=== PATIENT | female | born 1995 | race Caucasian/White ===

== ENCOUNTER → 2023-09-19 15:04 | Outpatient (CLI) | payer OTHER, SELFPAY ==
--- NOTE | 2023-09-19 15:05 | DI.US.S_ITS ---
PROCEDURE: US OB >= 14 WEEKS FETUS INDICATIONS: ANATOMY OUTSIDE/PRIOR DATING DATA: Last menstrual period (LMP): 04/30/2023. LMP-based estimated date of delivery (AYAH): 02/04/2024. First dating scan (date and location): Unknown. Estimated date of delivery (AYAH) from first dating scan: Unknown. The calculations are made using the working provided AYAH of 02/07/2024. TECHNIQUE: Real-time scanning was performed of the fetus, with image documentation and biometric measurements. Endovaginal scanning: Not performed COMPARISON: None. FINDINGS: General: A single living intrauterine gestation is present. Presentation: Variable. Placenta: Placental position is posterior , without previa. Amniotic fluid index: 12.3 cm, normal range is 5-24 cm. Single deepest vertical pocket is 4.5 cm. heart rate: 136 beats per minute. Maternal cervical canal: 2.9 cm long. Normal lower limit is 2.5 cm. biometrics: Biparietal diameter: 4.4 cm, 19 weeks 2 days Head circumference: 16.5 cm, 19 weeks 1 day Abdominal circumference: 15.5 cm, 20 weeks 5 days Femur length: 3.3 cm, 20 weeks 1 day Clinically estimated gestational age: 20 weeks 2 days Composite gestational age from present scan: 19 weeks 6 days Estimated weight and percentile: 345 g, 46 percentile Anatomic survey: Neuro: Ventricles are non-dilated at less than 10 mm. Cisterna magna is normal at 3-11 mm. Cerebellum is normal in size and morphology. Nuchal skin fold: Normal at less than 6 mm between 14-21 weeks gestational age. Face: Nose and lips, facial profile are normal. Spine: No evidence for spina bifida. Heart: 4-chambered heart is present, with normal ventricular outflow tracts. Diaphragm: Diaphragm is intact. Stomach: Left-sided stomach is present. Kidneys: No hydronephrosis. Normal is less than 5 mm in 2nd trimester, less than 7 mm in 3rd trimester. Cord: 3-vessel cord has orthotopic insertion. Bladder: Normal in size. Extremities: All 4 extremities identified. IMPRESSION: 1. Living 2nd trimester intrauterine with no sonographic evidence of complications. Current ultrasound age correlates with clinical age. 2. Normal 2nd trimester anatomy study. We strive to produce accurate, complete, and clear reports of imaging services. To assist us in improving patient care, this report was composed using standard report templates and voice recognition software. Therefore, it may contain abnormal punctuation, insertions and/or omissions. Occasional wrong-word or sound-alike substitutions may occur. Though we review the report and make efforts to correct it, we do recommend that the report be read carefully in proper context to recognize any text inaccuracies. Dictated by: Diaz Ma M.D. on 09/19/2023 at 17:08 Approved by: Diaz Ma M.D. on 09/19/2023 at 17:11
== END ==
PROVIDERS: Family Provider Family Medicine; Referring Provider Advanced Practice Midwife; Visit Provider Advanced Practice Midwife
DX: Z34.02 Encounter for supervision of normal first pregnancy, second trimester (principal); Z3A.19 19 weeks gestation of pregnancy
CPT/HCPCS: 76811

== ENCOUNTER 2024-02-01 10:40 | Inpatient (IN) | payer OTHER, SELFPAY ==
--- NOTE | 2024-02-01 12:50 | P.HPOB_ITS ---
OB HPI Date/Time Date of admission: 02/01/24 Date Patient Seen: 02/01/24 Time Patient Seen: 12:50 History of Present Condition Chief complaint: LABOR : 2 Para: 0 Estimated Date of Delivery: 02/04/24 Estimated Gestational Age (weeks): 39.4 Narrative: Falguni Mae is a 28 year old female @ 39wks 4 days here for evaluation of suspected PROM. Noticed leaking fluid between 0830 and 0930 this morning. Fluid has a slight yellow color to it. Feeling normal FM. Rare, mild cramping. No vaginal bleeding. Uncomplicated care with CNMs. Desires low intervention . Planning an epidural. Partner Francesco is present and supportive. History of Present care: good care, initiated at week # (7), number of visits (11) and pounds weight gain (48) Dating criteria: LMP confirmed by 1st trimester US (10wk) Ultrasounds: normal mid trimester US Obstetrical complications: none Medical complications: none Preadmission Labs Blood type: B (+) positive -: Antibody screen: negative, GBS status: negative, HBsAG: negative, HIV: negative and RPR/VDLR: negative -: Chlamydia screen: not detected and Gonorrhea screen: not detected -: Rubella: immune and Varicella: immune HCT: 36.9 HCAB: negative PAP: Abnormal (Colpo negative) 1 hr GTT: 82 Prior (ies) History: MAB x1 Evaluation Evaluation Baseline heart rate: 140 Variability: Moderate (11-25) monitor accelerations: Present Monitor Decelerations: Absent Contraction Frequency (minutes): 3 Uterine Contraction Intensity: Mild Status: Category l Non-invasive Membranes Rupture Test: positive Comments: CE deferred [facility] Medical History Acne (~2009) Painful menstrual periods (~2012) Family History Father Hypertension Grandfather Prostate cancer Colon cancer Hypertension Hyperlipidemia Grandmother Cancer Grandfather Cancer Hyperlipidemia Hypertension Grandmother Cancer Diabetes mellitus Hyperlipidemia Hypertension Social History Smoking Status: Never smoker Meds Home Medications and Allergies Home Medications Medication Instructions Recorded Confirmed Type vitamins no.119-iron See Rx Instructions .Route .COMPLEX 08/03/23 02/01/24 History fumarate 29 mg-folic acid 1 mg tablet Allergies Allergy/AdvReac Type Severity Reaction Status Date / Time No Known Drug Allergies Allergy Verified 02/01/24 12:33 Review of Systems Review of Systems ROS: Yes All systems reviewed with the patient and are negative except as otherwise documented OB Exam Vital signs Blood Pressure: 124/84 Pulse Rate: 98 Temperature: 98.1 F Resp Effort & Inspection: normal respiratory effort and able to speak in complete sentences Auscultation: clear to auscultation bilaterally Cardio Rate: regular rate Rhythm: regular rhythm Presentation: vertex Amniotic Fluid: meconium (light) Objective Labs 02/01/24 15:09 Assessment and Plan Assessment and Plan Assessment and Plan narrative: A: Term nullipara PROM x 4 hours without sx of infection No indication for antibiotics Suspected meconium stained amniotic fluid Cat I FHR P: Admit, routine labor orders. Expectant management of PROM. May switch to intermittent auscultation. As contractions have begin and she is feeling a little more uncomfortable, we discussed options for early labor and she elected movement and a TENS unit which was applied. Labor support PRN. Epidural when requested. CE after 2 hours of strong contractions. Reassess in 6 hours or sooner, PRN. Time-Based Coding :: [TOTAL MINUTES] spent with patient and on the chart (including review of chart, obtaining history, exam, reviewing outside data, placing orders, documenting exam and treatment plan, and counseling patient) on [DATE].
[2024-02-01 13:34] VITALS: BP 120/80
[2024-02-01 14:51] VITALS: BP 124/84; PULSE 98; TEMP 36.7
[2024-02-01 15:35] LABS: Add Manual Diff / Slide Review NO; Basophils Absolute Auto 0 /uL (0-100); Basophils Percent Auto 0.3 % (0-2); Eosinophils Absolute Auto 0 /uL (0-450); Eosinophils Percent Auto 0.3 % (2-4); Hematocrit 39.8 % (36-46); Lymphocytes Absolute Auto 1600 /uL (1100-4500); Lymphocytes Percent Auto 16.4 % (25-40); Mean Corpuscular HGB Conc 35.1 % (30-36); Mean Corpuscular Hemoglobin 33.4 PG (26-34); Mean Corpuscular Volume 95.3 fL (80-100); Monocytes Absolute Auto 700 /uL (0-900); Monocytes Percent Auto 7.4 % (3-14); Neutrophils Absolute Auto 7300 /uL (1500-7000); Neutrophils Percent Auto 75.6 % (50-75); Platelet Count 155 X10^3/uL (150-400); Red Blood Cell Count 4.18 X10^6/uL (4.0-5.2); Red Cell Distribution Width 13.3 % (11.6-14.8); White Blood Cell Count 9.7 X10^3/uL (4.5-11.0)
--- NOTE | 2024-02-01 20:29 | PM.OBPNLAB ---
Date/Time Date Patient Seen: 02/01/24 Time Patient Seen: 19:30 Pain Control Pain control: tolerating well Comments: Falguni is doing well, feeling irregular contractions but they are becoming more intense. Declines pitocin augmentation at this time. Does want some medication for sleep and may also try medication for pain. Pelvic Exam Amniotic membrane status: Ruptured (clear fluid) Comments: SVE deferred VS: BP 115/76 HR 82 bpm Temp: 36.8 C SPO2 97% Contractions Contractions on admission: irregular Contraction pattern: Irregular (mild) Contraction intensity: Mild Status Comments: Intermittent auscultation Baseline: 130 bpm Increases noted Decreases absent Assessment and Plan Comments: at 39w4d by LMP and confirmed by early ultrasound GBS negative Rh positive PROM x 11 hours Early labor FHR reassuring by doppler Continue expectant management. Review r/b/a at this time re: prolonged PROM. Recommend starting pitocin at 2030 (12 hours after PROM). Patient declines at this time. Reassess/consider pitocin at 0230 (18 hours post ROM). Offer sleep and/or pain medication at this time; Benadryl and morphine IM ordered.
[2024-02-01] MEDS: diphenhydrAMINE 50 MG/ML VIAL IV (21:53)
[2024-02-01] MEDS: MORPHINE 10 MG/ML INJ IM (22:34)
[2024-02-02] MEDS: LACTATED RINGERS 1,000 ML 100 ML IV ×2 (01:35→06:49)
--- NOTE | 2024-02-02 01:56 | PM.OBPNLAB ---
Date/Time Date Patient Seen: 02/02/24 Time Patient Seen: 01:10 Pain Control Pain control: tolerating well Comments: Falguni's contractions kicked in approx 2200, at first every 3 min, and now about every 1.5 min. Requests cervical exam, and then epidural due to being only 3 cm. Pelvic Exam Dilation (cm): 3 Effacement (%): 80 station: 0 Amniotic membrane status: Ruptured (clear fluid) Comments: Before epidural (0121): 3/90/0/posterior/medium Exam after epidural (approx 0253): 4/90/0/mid position, softer Bloody show noted during epidural set up. Indwelling catheter placed by RN, urine returned BP @ 2334 119/77 Map 92 HR 86 O2 98% BP @ 0208 112/71 BP range 97- 114/50-69 Contractions Contractions on admission: irregular Monitor mode: External Contraction frequency (min): 3 Contraction duration (min): 1 Contraction pattern: Irregular (mild) Contraction intensity: Mild Status status: Category l Heart Rate Baseline: 130 Monitor Accelerations: Present Monitor Decelerations: Absent Monitor Variability: Moderate Assessment and Plan Assessment: other (Early labor) Plan: continuous present management Comments: Early labor GBS negative Rh positive PROM 18hrs Epidural placed by anesthesia with good relief Cat 1 Post epidural hypotension Position change with peanut ball q30 mins Monitor BP q15 mins until stable; epinephrine given per protocol, managed by anesthesisa Reassess in 4 hours or PRN
[2024-02-02] MEDS: ePHEDrine 50 MG/ML VIAL 10 MG IV ×2 (02:41→03:43)
--- NOTE | 2024-02-02 03:39 | PM.AN.REGBLK ---
Regional Block Pre-procedure Procedure: Continuous Lumbar Epidural for L&D (with dural puncture) Attending OB provider: Rebeca Diggs PMH/ROS narrative: 28yo with SROM the morning of 02/01/24 in labor requesting epidural. ASA Class: II Labs: Hct 39.8 % (36-46) 02/01/24 15:09 Plt Count 155 X10^3/uL (150-400) 02/01/24 15:09 Medications: Current Medications Generic Name Dose Route Start Last Admin Trade Name Freq PRN Reason Stop Dose Admin Calcium Carbonate 1,000 mg 02/01/24 12:47 Calcium Carbonate 500 Mg Tab PO Q2HR PRN Dyspepsia Carboprost Tromethamine 250 mcg 02/01/24 12:47 Carboprost 250 Mcg/Ml Ampul IM Q90M PRN Bleeding Diphenhydramine HCl 25 mg 02/02/24 03:37 Diphenhydramine 50 Mg/Ml Vial IV Q10M PRN Pruritis Ephedrine Sulfate 10 mg 02/02/24 03:37 Ephedrine 50 Mg/Ml Vial IV Q5M PRN Blood pressure decrease more than 20% of baseline. Oxytocin/Lactated Ringer's 30 unit in 500 mls @ 200 mls/hr 02/01/24 12:47 Oxytocin Premix IV CONT PRN Bleeding Protocol Tranexamic Acid 1,000 mg/ 100 mls @ 600 mls/hr 02/01/24 12:47 Sodium Chloride IV NOW PRN Bleeding FENT 2MCG/ML BUPIV 0.125% EPI 200 mcg in 100 mls @ 6 mls/hr 02/02/24 03:45 Fentanyl/Bupiv/Ns 2mcg/Ml - 0.125% EPIDURAL CONT ZAID Lidocaine HCl 20 ml 02/01/24 12:47 Lidocaine 1% 20 Ml INJ INTRA-OP PRN Post Delivery Methylergonovine Maleate 0.2 mg 02/01/24 12:47 Methylergonovine 0.2 Mg Tablet PO Q6HR PRN Heavy Bleeding Methylergonovine Maleate 0.2 mg 02/01/24 12:47 Methylergonovine 0.2 Mg/Ml Vial IM NOW PRN Bleeding Mineral Oil 30 ml 02/01/24 12:47 Mineral Oil 30 Ml Udc TOP PRN PRN Version Misoprostol 800 mcg 02/01/24 12:47 Misoprostol 200 Mcg Tablet MD NOW PRN Bleeding Misoprostol 400 mcg 02/01/24 12:47 Misoprostol 200 Mcg Tablet SL NOW PRN Bleeding Nalbuphine HCl 2.5 mg 02/02/24 03:37 Nalbuphine 20 Mg/Ml Ampul IV Q10M PRN Pruritis Naloxone HCl 0.2 mg 02/01/24 12:47 Naloxone 0.4 Mg/Ml Vial IV Q2MIN PRN Opiate Reversal Ondansetron HCl 4 mg 02/01/24 12:47 Ondansetron 4 Mg/2 Ml Inj IV Q4HR PRN Nausea And Vomiting Oxytocin 10 unit 02/01/24 12:47 Oxytocin 10 Unit/Ml Vial IM NOW PRN Bleeding Allergies: Allergies Allergy/AdvReac Type Severity Reaction Status Date / Time No Known Drug Allergies Allergy Verified 02/01/24 12:33 Procedure Insertion date: 02/02/24 Insertion time: 02:20 Prep/Local: 1% lidocaine (Chloraprep) Interspace: L3-4 Patient position: sitting Needle: 18 gauge [employer] (27g 5 Anatoly needle used for dural puncture) Loss of resistance with: saline HANK at (cm): 6 Catheter placed at SKIN (cm): 14 Catheter in SPACE (cm): 8 Insertion: Yes CSF, No Blood, No Paresthesia with insertion, No Paresthesia with injection and No Test dose reaction Initial Medications TEST DOSE time: 02:21 TEST DOSE: 1.5% lidocaine with epinephrine 1:200k (mL): 3 BOLUS DOSE time: 02:22 BOLUS DOSE (mL): 6 BOLUS DOSE med: other (2 ml same as test dose, 4 ml lido 1% PF) Infusion INFUSION: 0.125% bupivacaine and with fentanyl 2 mcg/mL Initial rate (mL/hr): 8 Subsequent interventions: Epidural pump started 02:37, at which time pt rated pain with contractions at 0/10. BP dropped from systolic in 120s to 90s. Treated with one dose of ephedrine 10 mg. Post-procedure Anesthesia date START: 02/02/24 Anesthesia time START: 02:07 Anesthesia date END: 02/02/24 Anesthesia time END: 14:54 Post-procedure Anesthesia Assessment: Yes CV function: HR/BP stable, Yes Resp function: RR/sat/airway adequate, Yes Post-op hydration adequate, Yes Pain control adequate, Yes Nausea & vomiting absent, Yes Temperature > 36 C, Yes Mental status appropriate and No Anesthesia complications
[2024-02-02] MEDS: FENT 2MCG/ML BUPIV 0.125% EPI 200 MCG/100 ML PLAST..BAG 6 MCG EPIDURAL (09:08)
[2024-02-02] MEDS: METHYLERGONOVINE 0.2 MG/ML VIAL IM (15:08)
--- NOTE | 2024-02-02 15:32 | PM.OBPNLAB ---
Date/Time Date Patient Seen: 02/02/24 Time Patient Seen: 12:00 Pain Control Pain control: epidural Comments: VS: BP 117/78, HR 88 bpm, SpO2 96%, T 36.8 C Pelvic Exam Dilation (cm): 9.5 Effacement (%): 100 station: +1 Amniotic membrane status: Ruptured (clear fluid) Comments: occiput transverse Contractions Monitor mode: External Contraction frequency (min): 2 (1-3) Contraction duration (min): 1 (1-1.5) Contraction pattern: Irregular (mild) Contraction intensity: Strong/Firm Status status: Category ll Heart Rate Baseline: 135 Monitor Accelerations: Present Monitor Decelerations: Variable Monitor Variability: Moderate Assessment and Plan Assessment: active labor Plan: continuous present management Comments: Active labor GBS negative Rh positive Cat II FHT Epidural with good pain control Expect NSVB soon Position change with peanut ballkm Reassess in 1 hours, PRN
--- NOTE | 2024-02-02 15:42 | PM.OBPNLAB ---
Date/Time Date Patient Seen: 02/02/24 Time Patient Seen: 06:15 Pain Control Pain control: epidural Comments: VS: BP: 111/63 HR: 104 Temp: 37.3C O2: 96 Pelvic Exam Dilation (cm): 7 Effacement (%): 95 station: 0 Amniotic membrane status: Ruptured (clear fluid) Comments: Left Occiput transverse Contractions Contractions on admission: irregular Monitor mode: External Contraction frequency (min): 3 (3-5) Contraction duration (min): 1 Contraction pattern: Irregular (moderate) Contraction intensity: Mild Status status: Category l Heart Rate Baseline: 135 Monitor Accelerations: Present Monitor Decelerations: Absent Monitor Variability: Moderate Assessment and Plan Assessment: active labor Plan: continuous present management Comments: Active labor GBS negative Rh positive Epidural with good relief Cat 1 FHT Continue present management Position change q30 mins with peanut ball
[2024-02-02] MEDS: KETOROLAC 30 MG/ML VIAL IV (16:20)
[2024-02-02] MEDS: WITCH HAZEL/GLYCERIN PADS 1 EACH TOP (16:20)
[2024-02-02] MEDS: DERMOPLAST SPRAY 20% 60 ML 1 SPRAY TOP (16:21)
[2024-02-02] MEDS: LANOLIN OINT 7 GM 1 APPLIC TOP (16:21)
--- NOTE | 2024-02-02 17:00 | P.PCNOB_ITS ---
Events: Premature Rupture Membrane Labor & Delivery Delivery date: 02/02/24 Cervical ripening method: none Induction method: none Delivery monitor: external FHT Route of delivery: Episiotomy description: None L&D Laceration Description: None Quantitative Blood Loss: 489 Anesthesia Type: Epidural Narrative: Falguni labored well with effective pain control with epidural. ROM <19 hours, normothermic maternal temperature. Her cervix was found to be complete, complete +2 but baby was still transverse. Nursing staff assisted Falguni to her R side to encourage OA position. After about 1.5 hours Falguni was feeling pressure and the urge to push. She pushed on her R side for several contractions then decided to turn to her back. She pushed for 42 mins total. Head delivered and restituted ROSLYN and the shoulders delivered easily right after; no nuchal cord. The vigorous baby girl was caught by SNM and FOB and placed on the maternal abdomen for drying and stimulation. Apgars 9/9. Chux pad was removed and weighed for QBL. Schultze delivery of apparently intact placenta. Pitocin was started per protocol for management of the 2nd stage. The cord was double clamped by SNM and cut by FOB; cord blood was collected and cord was noted to have 3 vessels. Fundus was not firm and active uterine bleeding was noted; fundus was massaged vigorously, pitocin was increased to max mL/hr and methergine given IM. Bleeding was controlled within 1 min. QBL 489 ml. Perinum was inspected and found to have very small 1st degree vaginal tear; no repair needed. Mother and baby were skin to skin when I left the room and was initiated in the first hour of life. [place] Baby 1: Infant gender: Female Presentation: vertex Position: Left Occiput Anterior Placenta delivery description: Spontaneous Cord Vessel Description: 3 Vessels score (1 min): 9 score (5 min): 9 weight: 3.467 kg Plan for aftercare: Routine care
[2024-02-02] MEDS: ACETAMINOPHEN 325 MG TABLET 650 MG PO (22:06)
[2024-02-03] MEDS: ACETAMINOPHEN 325 MG TABLET 650 MG PO (06:20)
[2024-02-03] MEDS: WITCH HAZEL/GLYCERIN PADS 1 EACH TOP (10:16)
--- NOTE | 2024-02-03 10:16 | P.DS_ITS ---
Discharge Providers Provider Date of admission: 02/01/24 10:40 Discharge Date: 02/03/24 Consults: 02/01/24 12:47 Consult to Anesthesiology Urgent Comment: Consulting Provider: Anesthesiologist Reason for consultation: Epidural Has provider been notified: No 02/03/24 15:29 Consult to Departmental Secretary Routine Comment: Discharge provider: Rebeca Diggs CNM, ARNP Summary Hospital Course Date Patient Seen: 02/03/24 Time Patient Seen: 10:16 Diagnoses: O80 Hospital Course: Falguni arrived to hospital with confirmed PROM. Expectant management progressed to active labor and resulted in with epidural. QBL <500 mL. Normal course. . Peripartum Data Infant Delivery Method: Natural Vaginal Laceration Description: None [place] 1: Gender: Female Status at Discharge Cognitive/behavioral status at discharge: oriented and calm Functional status at discharge: independent ambulation Overall status at discharge: patient is progressing back to baseline Time Spent with Patient Time attestation: Total time spent providing and/or coordinating discharge services: Time spent: Less than 30 minutes Specific discharge activities: discharge teaching Objective Labs 02/01/24 15:09 Exam Vital Signs (past 8 hours): BP 104/70 HR 86 bpm RR 16/min T 99.6 F Other: Fundus firm at U-2, midline. Lochia moderate Perineum intact with minimal edema Discharge Plan Discharge Plan Patient Disposition: Home Discharge orders & Medications Prescriptions: Continued PNV 119-iron fum-folic acid 29 mg iron- 1 mg tablet See Rx Instructions .ROUTE .COMPLEX Rx Instructions: Take as directed Follow up/Referrals: Rebeca Diggs CNM, ARNP [[employer]] - 2 Weeks (2 and 6 weeks) Diet/Activity/Treatments Diet: Diet as Tolerated and Regular Diet comment: Increase fiber and fluid to aid in healing and prevent constipation Activity: Low buck x 2 weeks Cold/Heat Therapy: as needed Skin/Wound/Dressing Care Report to your healthcare provider any signs of infection, such as:: chills, fever, unusual drainage and unusual redness Visit Report/Discharge Packet Stand Alone Forms: Discharge: Care, Patient Portal/API, Stroke Signs & Symptoms
[2024-02-03] MEDS: IBUPROFEN 600 MG TABLET PO (12:27)
== END 2024-02-03 12:48 | disposition home or self-care (01) | DRG 807 ==
PROVIDERS: Nurse Practitioner Obstetrics & Gynecology; Admitting Provider Advanced Practice Midwife; Family Provider Family Medicine; Referring Provider Advanced Practice Midwife; Visit Provider Advanced Practice Midwife
DX: O42.02 Full-term premature rupture of membranes, onset of labor within 24 hours of rupture (principal); Z37.0 Single live birth; Z3A.39 39 weeks gestation of pregnancy
CPT/HCPCS: 36415; 59050; 84112; 85025; 86850; 86900; 86901; G0379; J1200; J1885; J2210; J2270